=== PATIENT | male | born 1970 | race Two or more races ===

== ENCOUNTER 2023-10-30 19:46 | Emergency (ER) | payer SELFPAY ==
[2023-10-30 19:50] VITALS: BP 140/89
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
[2023-10-30 20:44] VITALS: BP 130/82
[2023-10-30 21:10] VITALS: BMI 38.3
== END 2023-10-30 22:29 | disposition home or self-care (01) ==
LOC: EMR 19:46
PROVIDERS: EMERGENCY PHYSICIAN Emergency Medicine; FAMILY PHYSICIAN Family Medicine
DX: S16.1XXA Strain of muscle, fascia and tendon at neck level, initial encounter (principal); S80.11XA Contusion of right lower leg, initial encounter; S80.12XA Contusion of left lower leg, initial encounter; V29.99XA Rider (driver) (passenger) of other motorcycle injured in unspecified traffic accident, initial encounter; Y92.410 Unspecified street and highway as the place of occurrence of the external cause; E11.9 Type 2 diabetes mellitus without complications
CPT/HCPCS: 99284; 70450; 71046; 72125; 73590

== ENCOUNTER → 2023-11-10 18:12 | Outpatient (REF) | payer OTHER, SELFPAY | LOC: RAD 18:12 | PROVIDERS: ATTENDING PHYSICIAN Family Medicine | DX: M79.672 Pain in left foot (principal) | CPT/HCPCS: 73630 ==

== ENCOUNTER → 2023-12-11 12:00 | Outpatient (REF) | payer OTHER, SELFPAY | LOC: DHSLP 12:00 | PROVIDERS: ATTENDING PHYSICIAN Otolaryngology; FAMILY PHYSICIAN Family Medicine | DX: G47.33 Obstructive sleep apnea (adult) (pediatric) (principal) | CPT/HCPCS: 95806 ==